=== PATIENT | female | born 1995 | race Hispanic/Latino ===

== ENCOUNTER 2017-04-29 00:16 | Emergency (ER) | payer SELFPAY ==
[2017-04-29] MEDS ORDERED: Ondansetron HCl/PF 4 MG/2 ML Vial ONE (01:26)
[2017-04-29 01:35] LABS: Bilirubin Negative (Negative); Blood, Urine Large (Negative); Glucose, Urine (Dipstick) Negative (Negative); Ketone, Urine Negative (Negative); Nitrite Negative (Negative); Protein, Urine (Dipstick) Negative (Neg-Trace); Urobilinogen 0.2 mg/dL (0.2-1.0)
[2017-04-29 01:37] LABS: #Basophils 0.1 thou/uL (0.0-0.2); #Eosinphils 0.3 thou/uL (0.0-0.7); #Monocytes 0.6 thou/uL (0.11-0.59); #Neutrophils 4.2 thou/uL (1.40-6.50); %Eosinophils 4.2 % (0.0-10.0); %Lymphocytes 36.4 % (28.0-48.0); Hematocrit 42.8 % (36.0-47.0); Mean Platelet Volume 7.3 fL (7.4-10.4); Red Blood Cell (RBC) Count 4.94 mill/uL (4.00-5.20); White Blood Cell (WBC) Count 8.3 thou/uL (4.8-10.8)
[2017-04-29 01:47] LABS: Bacteria/HPF Rare-Few HPF (None Seen); RBC/HPF 0-3 HPF (0-3); Squamous Epithelial 0-3 HPF (0-3); WBC/HPF 0-3 HPF (0-3)
[2017-04-29 02:00] LABS: ALT (SGPT) 7 U/L (8-55); AST (SGOT) 14 U/L (5-34); Alkaline Phosphatase 47 U/L (40-150); Anion Gap 13 mmol/L (10-20); BUN (Urea Nitrogen) 7 mg/dL (7.0-18.7); Bilirubin, Total 0.4 mg/dL (0.2-1.2); Calc. Creatinine Clearance 0 mL/min (70-130); Calcium 9.7 mg/dL (7.8-10.44); Carbon Dioxide 25 mmol/L (22-29); Chloride 102 mmol/L (98-107); Estimated GFR-MDRD Greater than 90; Globulin 3.5 g/dL (2.4-3.5); Lipase 36 U/L (8-78); Protein, Total 7.7 g/dL (6.0-8.3)
--- NOTE | 2017-04-29 08:17 | ULT ---
PRELIMINARY REPORT/[facility]/EMERGENCY AFTER HOURS PROCEDURE: EXAM: US Abdomen Limited, Right Upper Quadrant CLINICAL HISTORY: 21 years old, female; Pain; Other: Upper abd pain, worse with meals TECHNIQUE: Real-time ultrasound of the right upper quadrant with image documentation. COMPARISON: No relevant prior studies available. FINDINGS: Several small shadowing gallstones within the gallbladder. No gallbladder wall thickening or pericholecystic fluid. Gallbladder appears somewhat distended, with a length of almost 18 cm. The maximum transverse diamet er is about 4 cm, which is upper range of normal. Technologist states patient is slightly tender over the gallbladder region during scanning. No biliary dilation, common duct measures 3.9 mm. Unremarkable liver, no focal abnormality. Visible pancreas unremarkable. Images of the right kidney show no hydronephrosis. IMPRESSION: Cholelithiasis, see additional details above. No biliary tree dilation. Thank you for allowing us to participate in the care of your patient. Dictated and Authenticated by: Kleber Helton MD 04/29/2017 1:37 AM Central Time ([place] \T\ [place]) FINAL REPORT EMERGENCY AFTER HOURS RIGHT UPPER QUADRANT ABDOMINAL ULTRASOUND: Date: 04/29/17 FINDINGS/IMPRESSION: I agree with the findings and impression given in the preliminary report per [facility] physician. The gal lbladder is distended. There may be small, shadowing stones in the dependent aspect of the gallbladd er. Gallbladder sludge is present. Echogenic foci in the fundus of the gallbladder may represent cho lesterol crystals. POS: ALEX
== END 2017-04-29 02:16 | disposition home or self-care (01) ==
LOC: ERS 00:16
DX: K80.20 Calculus of gallbladder without cholecystitis without obstruction (principal); Z79.899 Other long term (current) drug therapy
CPT/HCPCS: 76705; 80053; 81003; 81015; 83690; 84703; 85025; 96361; 96374; 96375; J2270; J2405

== ENCOUNTER 2017-06-17 20:06 | Emergency (ER) | payer SELFPAY ==
[2017-06-17] MEDS ORDERED: Ondansetron HCl/PF 4 MG/2 ML Vial ONE (20:18)
[2017-06-17 20:39] LABS: Bilirubin Negative (Negative); Blood, Urine Moderate (Negative); Glucose, Urine (Dipstick) Negative (Negative); Ketone, Urine Negative (Negative); Nitrite Negative (Negative); Protein, Urine (Dipstick) Negative (Neg-Trace); Urobilinogen 0.2 mg/dL (0.2-1.0)
[2017-06-17 20:41] LABS: Bacteria/HPF None Seen HPF (None Seen); Hyaline Casts/LPF 0-3 HYALINE CAST LPF (0-3 Hyaline); Squamous Epithelial 0-3 HPF (0-3); WBC/HPF 0-3 HPF (0-3)
[2017-06-17] MEDS ORDERED: Morphine 4 MG/ML VIAL ONE (20:45)
[2017-06-17 21:33] LABS: #Basophils 0.1 thou/uL (0.0-0.2); #Eosinphils 0.1 thou/uL (0.0-0.7); #Lymphocytes 1.5 thou/uL (1.20-3.40); #Monocytes 0.5 thou/uL (0.11-0.59); #Neutrophils 5.6 thou/uL (1.40-6.50); %Basophils 0.9 % (0.0-1.0); %Eosinophils 1.7 % (0.0-10.0); %Lymphocytes 19.7 % (28.0-48.0); %Monocytes 5.9 % (0.0-4.0); Hematocrit 37.9 % (36.0-47.0); Red Blood Cell (RBC) Count 4.39 mill/uL (4.00-5.20); White Blood Cell (WBC) Count 7.7 thou/uL (4.8-10.8)
[2017-06-17 21:55] LABS: ALT (SGPT) 31 U/L (8-55); AST (SGOT) 72 U/L (5-34); Alkaline Phosphatase 60 U/L (40-150); Anion Gap 11 mmol/L (10-20); BUN (Urea Nitrogen) 9 mg/dL (7.0-18.7); Bilirubin, Total 0.4 mg/dL (0.2-1.2); Calc. Creatinine Clearance 0 mL/min (70-130); Calcium 9.3 mg/dL (7.8-10.44); Carbon Dioxide 24 mmol/L (22-29); Chloride 105 mmol/L (98-107); Estimated GFR-MDRD Greater than 90; Globulin 3.4 g/dL (2.4-3.5); Lipase 36 U/L (8-78); Protein, Total 7.5 g/dL (6.0-8.3)
--- NOTE | 2017-06-17 21:57 | ULT ---
RIGHT UPPER QUADRANT ULTRASOUND 06/17/17 INDICATION: History of gallstones and abdominal pain. COMPARISON: Prior exam dated 04/29/17. FINDINGS: The gallbladder is moderately distended with multiple gallstones. No gallbladder wall thickening or p ericholecystic fluid is evident. No sonographic Mendoza's sign is reported. The visualized liver, pancreas, and right kidney appear within normal limits. Common bile duct measur es 4.6 mm. Right kidney measures 9.5 cm in length. IMPRESSION: Cholelithiasis without sonographic evidence of acute cholecystitis. POS: STEFANIEH
== END 2017-06-17 22:20 | disposition home or self-care (01) ==
LOC: ERS 20:06
DX: K80.20 Calculus of gallbladder without cholecystitis without obstruction (principal)
CPT/HCPCS: 36415; 76705; 80053; 81003; 81015; 83690; 84703; 85025; 96361; 96374; 96375; J2270; J2405